=== PATIENT | female | born 2000 | race Hispanic/Latino ===

== ENCOUNTER 2020-03-12 18:10 | Emergency (ER) | payer OTHER, SELFPAY ==
[2020-03-12] MEDS ORDERED: Lidocaine 1% PF 5 ML VIAL ONE (18:18)
[2020-03-12] MEDS ORDERED: Bacitracin 1 PK ONE (18:40)
== END 2020-03-12 18:55 | disposition home or self-care (01) ==
LOC: BURERS 18:10
DX: S61.211A Laceration without foreign body of left index finger without damage to nail, initial encounter (principal); W26.0XXA Contact with knife, initial encounter
CPT/HCPCS: 12002; J2001